=== PATIENT | male | born 1985 | race Caucasian/White ===

== ENCOUNTER 2024-04-29 13:57 | Emergency (ER) | payer SELFPAY ==
[~2024-04-29] VITALS: Ht 167.6 cm; Wt 77.0 kg
[2024-04-29 14:09] VITALS: O2SAT 98
[2024-04-29 18:01] LABS: BASOPHILS % 0.5 % (0.0-2.0); EOSINOPHILS % 2.5 % (0.0-5.0); HEMATOCRIT. 40.3 % (42.0-52.0); HEMOGLOBIN. 13.5 g/dL (14.0-18.0); LYMPHOCYTES % 21.4 % (20.0-50.0); MEAN CORPUSCULAR HGB CONC 33.4 g/dL (31.0-37.0); MEAN CORPUSCULAR VOLUME 92.8 fL (80.0-94.0); MEAN PLATELET VOLUME 7.8 fl (7.4-10.4); MONOCYTES % 8.3 % (2.0-8.0); NEUTROPHILS % 67.3 % (40.0-76.0); PLATELET 287 x1000/uL (130-400); RED BLOOD CELL COUNT 4.34 mill/uL (4.7-6.1); WHITE BLOOD COUNT 10.9 x1000/uL (4.5-11.0)
[2024-04-29 18:05] LABS: CHLORIDE 106 mEq/L (98-107); POTASSIUM 3.8 mEq/L (3.5-5.1); SODIUM 140 mEq/L (136-145)
[2024-04-29 18:06] LABS: CALCIUM 9.1 mg/dL (8.7-10.4); CARBON DIOXIDE 27 mEq/L (21-32)
[2024-04-29 18:07] VITALS: TEMP 98.5
[2024-04-29] MEDS: ACETAMINOPHEN 325MG TABLET PO STA (18:07)
[2024-04-29 18:08] VITALS: BP 144/64; PULSE 84; RESP 18
[2024-04-29] MEDS: KETOROLAC 30MG/ML VIAL IM STA (18:08)
[2024-04-29] MEDS: LIDOCAINE HCL/PF 1% 10 MG/ML 5ML VIAL INFIL ONE (18:08)
[2024-04-29 18:11] LABS: CREATININE 0.8 mg/dL (0.6-1.3); GLUCOSE 92 mg/dL (70-105); UREA NITROGEN BLOOD 12 mg/dL (9-23)
[2024-04-29] MEDS: BACITRACIN ZINC OINT UDPKT TOP NR (21:15)
[2024-04-29 22:23] LABS: BODY FLUID MONOCYTES 11 %; BODY FLUID RBC 38125 /cu mm (0-2000); BODY FLUID WBC 625 /cu mm (0-200)
[2024-04-29] MEDS ORDERED: SULF1TAB48 MT (22:32)
== END 2024-04-29 22:41 ==
LOC: ER 14:22
DX: M70.21 Olecranon bursitis, right elbow (principal); Y93.89 Activity, other specified
CPT/HCPCS: 80048; 85025; 87070; 87205; 89050; 89060; 36415; 73080; 96372; 99284; J1885; J3490; Z7610